=== PATIENT | female | born 1995 | race Caucasian/White ===

== ENCOUNTER 2020-07-01 16:32 | Outpatient (CLI) | payer OTHER, SELFPAY ==
--- NOTE | ~2020-07-01 | US_ITS ---
EXAMINATION: US soft tissue head and neck INDICATION: Palpable lump in the right neck TECHNIQUE: Targeted high-resolution ultrasound is performed in the area of clinical interest. COMPARISON: None available FINDINGS: There are two adjacent lymph nodes in the supraclavicular region of the right neck correspo nding to the palpable abnormality of concern. The lymph nodes demonstrate normal morphology and measu re up to 6 mm in short axis diameter. No suspicious mass is identified. IMPRESSION: 1. Two adjacent right supraclavicular lymph nodes corresponding to the right neck palpable abnormalit y. If asymmetric compared to the left, findings could reflect reactive lymph nodes although these nod es are normal in size. Recommend continued clinical follow-up with repeat imaging if lymph nodes cont inue to increase in size. Reviewed, dictated and finalized at location A. ARCHITECT IMPRESSION: 1. Two adjacent right supraclavicular lymph nodes corresponding to the right ne ck palpable abnormality. If asymmetric compared to the left, findings could ref lect reactive lymph nodes although these nodes are normal in size. Recommend co ntinued clinical follow-up with repeat imaging if lymph nodes continue to incre ase in size.
== END 2020-07-01 16:33 | disposition home or self-care (01) ==
PROVIDERS: Visit Provider Obstetrics & Gynecology
DX: R22.2 Localized swelling, mass and lump, trunk (principal)
CPT/HCPCS: 76536